=== PATIENT | male | born 1985 | race Caucasian/White ===

== ENCOUNTER 2023-08-04 19:09 | Emergency (ER) | payer SELFPAY ==
[2023-08-04] VITALS (10 sets, daily range): BP systolic 96–140; BP diastolic 71–86; PULSE 79–110; RESP 11–32; O2SAT 99–100
--- NOTE | ~2023-08-04 | CT_ITS ---
EXAMINATION: CT abdomen pelvis w con DATE: 08/04/2023 22:01 INDICATION: nausea/vomiting, MARILYN, elevated lipase TECHNIQUE: Computed tomography (CT) of the abdomen and pelvis was performed with 100 mL Omnipaque-350 intravenous contrast. Automated exposure control and iterative reconstruction technique were employe d. The dose-length product was 307.87 mGy-cm. COMPARISON: X-ray chest, same date. FINDINGS: Lower thorax: Dependent groundglass opacities in the lungs, likely atelectasis, greater on the right. Surgical scars over the anterior upper chest. Liver: Multiple subcentimeter right lobe hypodensities. Biliary/Gallbladder: Gallbladder is normal. No bile duct dilation. Pancreas: No mass or duct dilation. Spleen: Normal. Adrenals:No mass. Kidneys: No suspicious mass, obstructing stone, or hydronephrosis. GI tract: Mild distal esophageal and gastric wall edema No small or large bowel dilation. Minimal col onic wall edema. Normal appendix. Mesentery/Peritoneum: No ascites, mass, or free air. Retroperitoneum: No mass. Minimal atherosclerotic abdominal aortic and/or arterial calcifications. Pelvis: Absent uterus. Normal urinary bladder. Radiopaque device over the perineum may represent a pr osthetic or be otherwise related to gender reassignment surgery/procedure. Soft Tissues: Soft tissues and body wall unremarkable. Bones: No acute osseous finding. IMPRESSION: Mild esophagitis/gastritis. No CT findings of pancreatitis. Minimal colonic wall edema may reflect a component of colitis in the appropriate clinical context. Reviewed, dictated and finalized at location K. IMPRESSION: Mild esophagitis/gastritis. No CT findings of pancreatitis. Minimal colonic wall edema may reflect a component of colitis in the appropriat e clinical context.
--- NOTE | ~2023-08-04 | XR_ITS ---
EXAMINATION: XR chest 2V Exam Date/Time: 08/04/2023 19:48 CDT HISTORY: chest pain and SOB Comparison: None. RESULT: Lines, tubes, and devices: None. Lungs and pleura: Diffuse reticulonodular opacities. Cardiomediastinal silhouette: Stable. Other: No acute osseous or upper abdominal finding. IMPRESSION: Pulmonary opacities may represent bronchiolitis, as can be seen with atypical infection, asthma, aspi ration, and small airways disease. Reviewed, dictated and finalized at location K. IMPRESSION: Pulmonary opacities may represent bronchiolitis, as can be seen with atypical i nfection, asthma, aspiration, and small airways disease.
--- NOTE | 2023-08-04 19:16 | ECG_ITS ---
Measurements Intervals [facility] Rate: 86 P: 46 VT: 117 QRS: 48 QRSD: 86 T: 8 QT: 339 QTc: 406 Interpretive Statements SINUS RHYTHM WITH SHORT VT INTERVAL POSSIBLE LEFT ATRIAL ENLARGEMENT DELAYED PRECORDIAL R/S TRANSITION MINIMAL Q WAVES- INFERIOR LEADS BASELINE ARTIFACT- V1-V2 BORDERLINE ECG NO PREVIOUS ECG AVAILABLE FOR COMPARISON Electronically Signed On 08-05-2023 6:32:19 CDT by Brando Jaquez D.O.
[2023-08-04] MEDS: METOCLOPRAMIDE HCL INJ 10 MG/2 ML VIAL IV PUSH (19:37)
[2023-08-04] MEDS: diphenhydrAMINE HCl INJ 50 MG/ML VIAL 25 MG IV PUSH (19:38)
--- NOTE | 2023-08-04 19:42 | ED.CHESTPAIN ---
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 They had had some [employer] about an hr ago. Related Data Allergies Allergy/AdvReac Type Severity Reaction Status Date / Time Penicillins Allergy Hives Verified 08/04/23 20:46 Review of Systems Review of Systems: CONST: No fever. HEENT: No sore throat C/V: No chest pain RESP: Difficulty breathing GI: Reports epigastric abdominal pain, nausea, vomiting : No dysuria. M/S: No joint pain. SKIN: No rash. NEURO: [No headache or focal numbness or weakness] PSYCH: Anxiety Exam Narrative: EXAMINATION OF ORGAN SYSTEMS/BODY AREAS: Constitutional: Vital signs per nursing GENERAL: Appears quite anxious and retching HEAD: Normal with no signs of head trauma. EYES: EOMI, conjunctiva normal ENT: Hearing grossly intact LUNGS: Tachypneic HEART: Tachycardic ABD: [Soft], [nontender to palpation] EXT: Normal range of motion SKIN: [No rashes or lesions.] NEURO: [Alert and oriented x 3. No gross focal sensory or strength deficits.] PSYCH: Anxious affect Course Vital Signs Vital signs: Vital Signs Pulse Oximetry 99 08/04/23 19:40 Oxygen Delivery Room Air 08/04/23 19:40 Pulse Rate 96 08/04/23 23:23 Respiratory Rate 14 08/04/23 23:23 Blood Pressure 140/86 08/04/23 23:23 Pulse Oximetry 100 08/04/23 23:23 Oxygen Delivery Room Air 08/04/23 19:40 MDM - Chest Pain MDM Narrative Medical decision making narrative: Patient with history of anxiety reports he can't breathe. On exam patient is [tachycardic and hyperventilating and is quite tearful and anxious and retching]. I will obtain labs and imaging obtained to rule out arrhythmia/ischemia, pneumothorax, or other cause of shortness of breath. Lipase is elevated so CT obtained. Chest x-ray on my independent interpretation does not show any acute abnormality, no pneumothorax or consolidation. EKG - 12-Lead: Performed at 2050. Interpreted by me. [Sinus rhythm]. Rate 86. [Normal] axis. MD-interval [normal]. QRS duration [normal]. QTc [normal]. [No ST segment elevation or depression]. [T-wave normal]. Impression: No EKG evidence of acute ischemia or dysrhythmia. CT does not show any acute abnormality other than some possible gastritis. On reevaluation patient is feeling better, resting comfortably, vital signs now stable. He is no longer nauseous or throwing up, he feels much better and would like to go home, he has friends here. I do feel patient is stable for discharge home at this time with followup to their doctor, and return here if symptoms return or worsen. Agreeable to outpatient management. Lab Data 08/04/23 19:34 08/04/23 19:34 Labs: Lab Results 08/04/23 08/04/23 Range/Units 19:34 22:24 WBC 9.2 (4.5-10.0) K/mm3 RBC 4.32 L (4.6-6.20) M/mm3 Hgb 14.0 (14.0-18.0) g/dL Hct 39.9 L (42.0-52.0) % MCV 92.4 (80-100) fl MCH 32.4 (26-34) pg MCHC 35.1 (32-36) g/dl RDW 12.5 (11.5-14.5) % Plt Count 251 (150-375) k/mm3 MPV 9.4 (7.4-10.4) fl Immature Gran % (Auto) 0.2 (0-0.5) % Neut % (Auto) 40.8 L (45.5-73.1) % Lymph % (Auto) 42.3 (18.3-44.2) % Aiken % (Auto) 10.1 H (2.6-8.5) % Eos % (Auto) 5.9 H (0-4.4) % Baso % (Auto) 0.7 (0.2-1.2) % Lymph # (Auto) 3.90 H (0.9-3.2) K/mm3 Aiken # (Auto) 0.9 H (0.1-0.6) K/mm3 Eos # (Auto) 0.5 H (0-0.3) K/mm3 Baso # (Auto) 0.1 (0.0-0.1) K/mm3 Abs Immat Gran (auto) 0.02 (0.00-0.031) K/mm3 Absolute Neuts (auto) 3.8 (1.3-6.7) K/mm3 Absolute Nucleated RBC 0.0 (0.0-0.012) K/mm3 Nucleated RBC % 0.0 (0.0-0.2) % PT 13.6 (11.1-14.7) Seconds INR 1.0 APTT 22.0 L (22.3-36.8) SECONDS D-Dimer < 0.27 (<0.48)
[2023-08-04 19:45] LABS: Basophils Absolute Auto 0.1 K/mm3 (0.0-0.1); Basophils Percent Auto 0.7 % (0.2-1.2); Eosinophils Absolute Auto 0.5 K/mm3 (0-0.3); Eosinophils Percent Auto 5.9 % (0-4.4); Hematocrit 39.9 % (42.0-52.0); Immature Granulocyte Absolute 0.02 K/mm3 (0.00-0.031); Immature Granulocyte Percent A 0.2 % (0-0.5); Lymphocytes Percent Auto 42.3 % (18.3-44.2); Mean Corpuscular HGB Conc 35.1 g/dl (32-36); Mean Corpuscular Hemoglobin 32.4 pg (26-34); Mean Corpuscular Volume 92.4 fl (80-100); Mean Platelet Volume 9.4 fl (7.4-10.4); Monocytes Absolute Auto 0.9 K/mm3 (0.1-0.6); Monocytes Percent Auto 10.1 % (2.6-8.5); Neutrophils Absolute Auto 3.8 K/mm3 (1.3-6.7); Neutrophils Percent Auto 40.8 % (45.5-73.1); Platelet Count Result 251 k/mm3 (150-375); Red Blood Count 4.32 M/mm3 (4.6-6.20); Red Cell Distribution Width 12.5 % (11.5-14.5); White Blood Count 9.2 K/mm3 (4.5-10.0)
[2023-08-04 19:57] LABS: Prothrombin Time 13.6 Seconds (11.1-14.7)
[2023-08-04 19:59] LABS: Alanine Aminotransferase 19 U/L (6-50); Albumin Level 4.4 g/dL (3.5-5.1); Alkaline Phosphatase 59 U/L (38-126); Anion Gap 8 mmol/L (8-16); Aspartate Amino Transferase 26 U/L (17-59); Bilirubin,Total 0.8 mg/dL (0.2-1.3); Blood Urea Nitrogen 18 mg/dL (9-20); Calcium 9.2 mg/dL (8.4-10.2); Carbon Dioxide 24 mmol/L (22-30); Chloride 107 mmol/L (98-107); Estimated CRCL calculation 77 ml/min; Estimated Glomerular Filt Rate > 60; Glucose 154 mg/dL (65-110); Lipase 399 U/L (23-300); Potassium 3.4 mmol/L (3.4-5.0); Sodium 139 mmol/L (137-145)
[2023-08-04 20:11] LABS: Troponin I < 0.012 ng/mL (0.000-0.034)
[2023-08-04 20:13] LABS: D Dimer < 0.27 ug/mL (<0.48)
--- NOTE | 2023-08-04 20:57 | PC.NURSE ---
unable to perform ekg until 2050 due to the pt throwing up and shaking. medication relieved symptoms
[2023-08-04 22:55] LABS: Troponin I < 0.012 ng/mL (0.000-0.034)
== END 2023-08-04 23:24 | disposition home or self-care (01) ==
PROVIDERS: Emergency Medicine; Emergency Provider Emergency Medicine
DX: R06.02 Shortness of breath (principal); R11.2 Nausea with vomiting, unspecified; R94.31 Abnormal electrocardiogram [ECG] [EKG]; K20.90 Esophagitis, unspecified without bleeding; K29.70 Gastritis, unspecified, without bleeding
CPT/HCPCS: 36415; 71046; 74177; 80053; 83690; 84484; 85025; 85380; 85610; 85730; 93005; 96374; 96375; 99284; J1200; J2765; Q9967